=== PATIENT | male | born 1995 | race Caucasian/White ===

== ENCOUNTER 2024-05-22 09:42 | Emergency (ER) | payer OTHER, SELFPAY ==
[2024-05-22 09:51] VITALS: BP 123/78; PULSE 76; RESP 18; TEMP 36.4; O2SAT 98
--- NOTE | 2024-05-22 10:01 | ED_ITS ---
HPI - Extremity Problem General Chief complaint: Extremity Injury, Upper Stated complaint: elbow pain Time Seen by Provider: 05/22/24 10:00 Source: patient Mode of arrival: ambulatory Limitations: no limitations History of Present Illness ED Provider: Elke LOYA Narrative: Patient is a 28-year-old male presenting to the emergency department with complaint of bilateral elbow pain since last week. Patient states that he did bicep curls for 3 days in a row. By the 3rd day, had difficulty lifting. States this activity is not typical for him. Took ibuprofen once with little relief. Reports pain increases the most with full extension of elbows. Denies any weakness, numbness, tingling. Complaint: joint pain Onset (ago): day(s) Pain Consistency: constant Location: elbow (Bilateral) Quality: aching Radiation: none Relieving factors: nothing Exacerbating factors: other (Full extension of elbows) Associated symptoms: denies other symptoms Context: other Related Data Allergies Allergy/AdvReac Type Severity Reaction Status Date / Time latex Allergy Intermediate Rash Verified 05/22/24 09:54 amoxicillin Allergy Unknown Unknown Verified 05/22/24 09:54 Review of Systems Review of Systems: As per HPI. Yes all other systems are reviewed and are negative Constitutional: Constitutional: Reports as per HPI Physical Exam Vital Signs: Vital Signs: Last Vital Signs Temp 97.6 F 05/22/24 09:51 Pulse 76 05/22/24 09:51 Resp 18 05/22/24 09:51 BP 123/78 05/22/24 09:51 Pulse Ox 98 05/22/24 09:51 O2 Del Method Room Air 05/22/24 09:51 BMI result Body Mass Index 20.0 Vital signs have been reviewed and appear to be correct. Blood pressure normal. Heart rate normal. Respiratory rate normal. Temperature normal. Oxygen saturation normal. Const: General: cooperative, healthy appearing and no acute distress Orientation/consciousness: oriented to person, oriented to place, oriented to time and patient oriented x3 Limitations: no limitations HEENT: Head: Yes normocephalic and Yes atraumatic Ears: external ears normal General nose exam: Normal external nose present Face and sinus: Yes face symmetric Mouth: oropharynx normal and moist mucous membranes Throat: Yes uvula midline Eyes: Pupils: Equal, round and reactive pupils present Neck: Neck: Yes normal visual inspection and Yes supple Resp: Effort & Inspection: normal respiratory effort and able to speak in complete sentences Auscultation: clear to auscultation bilaterally Cardio: Rate: regular rate Rhythm: regular rhythm Heart sounds: S1 normal heart sound present and S2 normal heart sound present GI: Palpation (GI): Soft to palpation and nontender Auscultation: normoactive bowel sounds : General: Yes no CVA tenderness Back/Spine/Pelvis: Back: no CVA tenderness Skin: General skin exam: elasticity normal and turgor normal Neuro: General: oriented to person, oriented to place, oriented to time, patient oriented x3, moves all extremities, no focal motor deficits and CN's II- XI intact bilaterally Cranial nerves: Yes Equal, round and reactive pupils present Cognition (Neuro): normal cognition Motor exam (neuro): 5/5 motor strength present throughout, Pronator motor function not present, no tremor noted, no asterixis, Motor fasciculations not present, Normal motor muscle tone present throughout and Motor abnormalities not present Extrem: General: Yes full ROM, Yes no pedal edema and Yes no calf tenderness Right upper extremity: elbow/forearm Details: normal to inspection, normal ROM and distal pulses intact; no tenderness, no swelling, no unusual warmth, no ecchymosis and no crepitus Left upper extremity: elbow/forearm Details: normal to inspection, normal ROM and distal pulses intact; no tenderness, no unusual warmth, no ecchymosis and no crepitus Psych: Mental Status: mental status grossly normal Affect: normal affect Thought process: Normal thought process present Medical Decision Making Medical Decision Making MDM Narrative: Patient is a 28-year-old male presenting to the emergency department with complaint of bilateral elbow pain since last week. On exam patient is awake, A+Ox3, VS WNL, afebrile, normal neurological exam without focal deficits, physical exam findings as above. Given reported symptoms and physical exam findings, initial differential includes repetitive strain injury, medial elbow tendinopathy. Do not suspect inflammatory or septic arthritis. Discussed with patient that he should begin using an NSAID consistently for the next 1-2 weeks, can also use Tylenol with this and apply cool compresses. Discussed with pat garry that he should avoid exercises involving the same muscle group for multiple days in a row. Will refer to ortho for any ongoing symptoms. Instructed patient to follow-up with PCP. Return precautions discussed at bedside. Patient verbalized understanding of and agreement with plan. Differential Diagnosis Differential Diagnoses: The differential diagnosis associated with the presentation includes As per MDM. External Record Review External record reviewed: Inpatient record, Office record and Outpatient record Tests considered The following testing was considered but not selected: Considered x-rays, however, patient denies any fall or other trauma Discharge Plan Discharge Clinical Impression: Repetitive strain injury of left elbow, Repetitive strain injury of right elbow Patient Disposition: Home, Self-Care Instructions: Muscle Strain (DC), Elbow Sprain (ED), Exercise Safety (ED), Cold Compress or Soak (ED) Additional Instructions: You were evaluated in the emergency department today for pain to your elbows after excessive weightlifting. You should avoid exercising the same muscle group for multiple days in a row in the future. We recommend that you begin taking an NSAID such as ibuprofen or naproxen consistently for the next 1-2 weeks, DO NOT TAKE BOTH-ONE OR THE OTHER. If you choose to use ibuprofen, we recommend 600 mg every 6 hours. If you use naproxen, we recommend 500 mg twice daily. You can also take 650 mg of Tylenol every 6 hours in combination with either 1 of these medications. We also recommend gentle stretching exercises throughout the day. Please follow-up with your primary care provider. Return to the emergency department if you develop new weakness, numbness, tingling, change of color in your arms or any other concerning symptoms. [place] [facility] [place] [facility] [place] Group] Print Language: Moz[place]ican
== END 2024-05-22 10:53 | disposition home or self-care (01) ==
PROVIDERS: Emergency Provider Emergency Medicine; PCP Pediatrics Adolescent Medicine
DX: M25.522 Pain in left elbow (principal); M25.521 Pain in right elbow
CPT/HCPCS: 99281; 99282

== ENCOUNTER 2024-05-24 21:14 | Emergency (ER) | payer OTHER, SELFPAY ==
--- NOTE | ~2024-05-24 | XR_ITS ---
EXAMINATION: XR ELBOW, LEFT CLINICAL INFORMATION: atraumatic left elbow pain COMPARISON: None available. TECHNIQUE: AP, lateral, and oblique views of the left elbow. FINDINGS: The bones and soft tissues are normal. No fracture or joint effusion. Alignment is anatomic. Joint spaces are maintained. No radiopaque foreign body. XR/XR elbow LT min 3V IMPRESSION: Normal left elbow.
[2024-05-24 21:19] VITALS: BP 129/72; PULSE 70; RESP 18; TEMP 37.4; O2SAT 98; BMI 20.3
--- NOTE | 2024-05-24 22:06 | ED_ITS ---
HPI - General Adult General Chief complaint: Extremity Problem Stated complaint: elbow pain and swelling Time Seen by Provider: 05/24/24 22:06 History of Present Illness ED Provider: Curtis LOYA narrative: The patient is a 28-year-old male who comes to the emergency room for evaluation of symptoms of the left elbow. The patient was seen here 2 days ago for elbow discomfort and was thought to have a repetitive motion injury. He has been doing biceps curls a great deal in the preceding days. He was discharged with no imaging. He says that he felt better the next day but today he has had worsening pain in the left elbow again and he feels that there is an area of swelling to the proximal forearm near the the elbow laterally. He feels the arm is heavy. No numbness or tingling in the hand. There has been no new injury. 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 He feels the arm just does not feel right. Related Data Allergies Allergy/AdvReac Type Severity Reaction Status Date / Time latex Allergy Intermediate Rash Verified 05/24/24 21:24 amoxicillin Allergy Unknown Unknown Verified 05/24/24 21:24 Review of Systems Review of Systems: Yes all other systems are reviewed and are negative [facility] Social History Social History Advance Directives: No Advance Directives Information Provided: No Physical Exam ED Vital Signs: Vital Signs - 24 hr 05/24/24 21:19 Temperature 99.3 F Pulse Rate 70 Respiratory Rate 18 Blood Pressure 129/72 Pulse Oximetry 98 Oxygen Delivery Method Room Air BMI result Body Mass Index 20.3 Const Other: The patient is a 28-year-old male who looks as though he is ordinarily in good health. He has a slim 28-year-old. He is not in any distress. He has not appear toxic. HENMT Other: Face is unremarkable. Mucous membranes moist. Eyes Other: Pupils are round equal, conjunctivae are clear Neck Other: Moving his neck easily Resp Effort & Inspection: normal respiratory effort Skin Other: There seemed to be some mild fullness to the skin of the lateral aspect of the proximal forearm just distal to the elbow. Do not appreciate any masses or swelling or gross deformity however. There is no erythema. Neuro Other: The patient is awake and alert with a normal mental status. He has normal strength and sensation in the left hand. Extrem Other: I can put the left elbow through a good range of motion of both flexion and extension at the elbow and pronation and supination of the forearm. I do not seem to cause any particular pain when I manipulate the joint. Do not appreciate any definite joint effusion or any fluctuance. Medical Decision Making Medical Decision Making [facility] Narrative: The patient is a 28-year-old male who was seen here 2 days ago for left elbow pain that seems to have arisen after he was doing a new exercise routine with fairly intense bicep curls over the last several days. He felt better after 1 day of rest but today he did heavy lifting at work and this seems to exacerbated his left elbow pain. He was anxious to have imaging of the elbow today. We obtained a left elbow x-ray that I feel looks unremarkable. He will be provided with a sling. He will be given a work note for modified duty. He does not have a PCP. He is advised to try to get a PCP. He was given the name and number of the on-call orthopedic office if he has not improving with conservative management. Discharge Plan Discharge Clinical Impression: Repetitive strain injury of left elbow Patient Disposition: Home, Self-Care Additional Instructions: The x-ray of your elbow does not show any concerning findings. I think you have a strain type injury to your elbow that will probably get better with rest over the next several days. You may use the sling provided for comfort. You may ice the elbow for 10-15 minutes several times a day. You may use acetaminophen and ibuprofen as needed for pain. Please work on getting a regular primary care doctor. I have given you the name and number of a local orthopedic office which you may contact if you feel you are having ongoing symptoms and want to speak to a more specialist physician. Return to the emergency room if worse. Referrals: Jaret King MD [Physician] - (left elbow strain) Stand Alone Forms: Work/School Release Print Language: Uzbek
== END 2024-05-24 23:52 | disposition home or self-care (01) ==
PROVIDERS: Emergency Provider Emergency Medicine; PCP Pediatrics Adolescent Medicine
DX: S53.402A Unspecified sprain of left elbow, initial encounter (principal); X58.XXXA Exposure to other specified factors, initial encounter; Y93.9 Activity, unspecified; Y92.9 Unspecified place or not applicable; Y99.9 Unspecified external cause status
CPT/HCPCS: 73080; 99281; 99283